=== PATIENT | female | born 1970 | race Caucasian/White ===

== ENCOUNTER → 2023-09-29 06:38 | Outpatient (REF) | payer BC, SELFPAY ==
[2023-09-29 08:59] LABS: Hepatitis B Surface Antigen Negative (Negative)
[2023-09-29 09:16] LABS: Hepatitis C Antibody Negative (Negative)
[2023-09-29 12:09] LABS: Syphilis/T. pallidum Ab Reflex Negative (Negative)
[2023-09-29 14:31] LABS: HIV Combo Negative (Negative)
== END ==
LOC: REG 06:38
PROVIDERS: ATTENDING PHYSICIAN Obstetrics & Gynecology
DX: Z11.3 Encounter for screening for infections with a predominantly sexual mode of transmission (principal)
CPT/HCPCS: 36415; 86695; 86696; 86780; 86790; 86803; 87340; 87389

== ENCOUNTER → 2023-10-24 17:36 | Outpatient (REF) | payer BC, SELFPAY | LOC: RAD 17:36 | PROVIDERS: ATTENDING PHYSICIAN Nurse Practitioner; FAMILY PHYSICIAN Internal Medicine | DX: R19.4 Change in bowel habit (principal) | CPT/HCPCS: 74018 ==

== ENCOUNTER → 2024-04-05 08:24 | Outpatient (REF) | payer BC, SELFPAY | LOC: RCS 08:24 | PROVIDERS: ATTENDING PHYSICIAN Student in an Organized Health Care Education/Training Program | DX: I49.9 Cardiac arrhythmia, unspecified (principal) | CPT/HCPCS: 93306 ==

== ENCOUNTER → 2024-08-09 06:45 | Outpatient (REF) | payer BC, SELFPAY ==
[2024-08-09 07:32] LABS: % Basophils 0.2 % (0-2); % Eosinophils 2.1 % (0-6); % Immature Granulocytes 0.6 % (0-0.5); % Lymphocytes 42.3 % (20.5-51.1); % Neutrophils 46.8 % (42.2-75.2); Absolute Eosinophils 0.1 10^3/uL (0-0.7); Absolute Lymphocytes 2.2 10^3/uL (1.2-3.4); Absolute Monocytes 0.4 10^3/uL (0.1-0.6); Absolute Neutrophils 2.5 10^3/uL (1.4-6.5); Hematocrit 35.3 % (37.0-47.0); Hemoglobin 12.4 g/dL (12.0-16.0); Mean Corp Hgb Conc. 35.1 g/dL (33.0-37.0); Mean Corpuscular Hgb 32.3 pg (27.0-31.0); Mean Corpuscular Volume 91.9 fL (81.0-99.0); Mean Platelet Volume 8.4 fL (7.4-10.4); Nucleated Red Blood Cells % 0 %; Platelet Count 159 10^3/uL (130-400); Red Blood Cell Count 3.84 10^6/uL (4.20-5.40); Red Cell Dist. Width 13.1 % (11.5-14.5); White Blood Cell Count 5.3 10^3/uL (4.8-10.8)
[2024-08-09 08:39] LABS: FSH 55.7 mIU/ml; Vitamin D, 25-OH*** 41.7 ng/mL (30-80)
[2024-08-09 08:44] LABS: ALT (SGPT) 29 U/L (0-35); AST (SGOT) 25 U/L (14-36); Albumin 4.2 g/dl (3.5-5.0); Alkaline Phosphatase 63 U/L (38-126); Blood Urea Nitrogen 18 mg/dl (7-17); Calcium 9.1 mg/dl (8.4-10.2); Carbon Dioxide 25 mmol/L (22-30); Chloride 112 mmol/L (98-107); Glucose 87 mg/dl (70-99); HDL Cholesterol 69 mg/dl; LDL Cholesterol, Calculated 87 mg/dl; Potassium 4.1 mmol/L (3.5-5.1); Sodium 144 mmol/L (135-145); Total Bilirubin 1.1 mg/dl (0.2-1.3); Total Cholesterol 170 mg/dl (50-199); Total Protein 6.8 g/dl (6.3-8.2); Triglyceride 73 mg/dl (10-149); Very Low Density Lipoprotein 14 mg/dl (0-30); eGFR > 60.00
[2024-08-09 08:52] LABS: TSH Reflex To Free T4 4.76 uIU/ml (0.47-4.68)
[2024-08-09 08:53] LABS: Estradiol 11.9 pg/ml
[2024-08-09 09:19] LABS: Free T4 0.81 ng/dl (0.78-2.19)
[2024-08-09 09:22] LABS: Glycohemoglobin (HgbA1c) 4.5 % (4.0-5.6)
== END ==
LOC: REG 06:45
PROVIDERS: ATTENDING PHYSICIAN Registered Nurse; FAMILY PHYSICIAN Internal Medicine
DX: N95.1 Menopausal and female climacteric states (principal); E11.9 Type 2 diabetes mellitus without complications; E78.00 Pure hypercholesterolemia, unspecified; Z00.00 Encounter for general adult medical examination without abnormal findings; E07.9 Disorder of thyroid, unspecified
CPT/HCPCS: 36415; 80053; 80061; 82306; 82670; 83001; 83002; 83036; 84270; 84402; 84403; 84439; 84443; 85025

== ENCOUNTER → 2024-10-31 07:23 | Outpatient (REF) | payer BC, SELFPAY ==
[2024-10-31 18:41] LABS: Hepatitis C Antibody Negative (Negative)
[2024-11-01 15:47] LABS: Syphilis/T. pallidum Ab Reflex Negative (Negative)
== END ==
LOC: REG 07:23
PROVIDERS: ATTENDING PHYSICIAN Registered Nurse; FAMILY PHYSICIAN Internal Medicine
DX: Z11.3 Encounter for screening for infections with a predominantly sexual mode of transmission (principal)
CPT/HCPCS: 36415; 86780; 86803; 87389; 87491; 87591